=== PATIENT | male | born 2005 | race Caucasian/White ===

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

== ENCOUNTER 2024-07-23 12:25 | Outpatient (CLI) | payer OTHER, SELFPAY ==
[2024-07-23 12:33] LABS: Hemoglobin A1C 5.5 % (<5.7)
[2024-07-23 13:03] LABS: Anion Gap 6.9 mmol/L (3-11); BUN 17 mg/dL (7-18); CO2 34.1 mmol/L (21.0-32.0); CREATININE 1.1 mg/dL (0.70-1.30); Calcium 9.9 mg/dL (8.5-10.1); Chloride 101 mmol/L (98-107); Estimated GFR 97.95 (mL/min/1.73m2); Glucose 90 mg/dL (74-106); Potassium 4.4 mmol/L (3.5-5.1); Sodium 142 mmol/L (136-145); TSH (W/Ref FT4) 1.64 uIU/mL (0.36-3.74)
== END 2024-07-23 12:26 | disposition home or self-care (01) ==
LOC: LBO 12:26
PROVIDERS: PCP Pediatrics; Visit Provider Pediatrics
DX: Z83.3 Family history of diabetes mellitus (principal)
CPT/HCPCS: 36415; 80048; 83036; 84443

== ENCOUNTER 2025-01-01 11:55 | Emergency (ER) | payer OTHER, SELFPAY ==
[2025-01-01 12:08] VITALS: BP 121/69; PULSE 63; RESP 14; TEMP 36.6; O2SAT 96
--- NOTE | 2025-01-01 12:45 | W.ED.GENAD ---
Discharge Plan Disposition Patient Disposition: Home Condition: Good Discharge Details Clinical Impression: Concussion, Abrasion head Primary Care Provider: Geovany Cabrera ED Provider: Geovany Oconnell Home Meds and New Rx's Prescriptions: No Action ascorbate calcium (vitamin C) 500 mg tablet 1,000 mg PO DAILY cholecalciferol (vitamin D3) 125 mcg (5,000 unit) capsule 125 mcg PO DAILY Galzin 50 mg (zinc) capsule 50 mg PO DAILY Discharge Instructions Instructions: Concussion, Adult ED Additional Instructions: At this time your symptoms appear clinically inconsistent with a fracture of your skull or an intracranial brain bleed. You did have a mild abrasion on the scalp which has been covered with skin glue. I do suspect that you received a mild concussion from the episode. Please drink plenty of fluids and rest. If you have any worsening of your symptoms please return immediately. Please be very cognizant of any evidence of worsening headache, vomiting, weakness, numbness, dizziness, decreased concentration, memory problems, sleep disturbance, irritability, fatigue, visual disturbances, judgment problems, depression, or anxiety. These may represent a worsening of your condition or a different, or worse pathology. Please either return immediately for reevaluation or follow up with your primary care provider immediately for continued assessment, reassessment, and management. Please avoid any contact sports, or activities which could cause jarring of your head. A second repeat injury can cause significant and permanent brain damage. After you have complete resolution of any of the symptoms noted above please wait one COMPLETE week until you resume normal gentle physical activity. If you have any return of the symptoms after this, please again wait 1 week after you have complete resolution of your symptoms to return to gentle and normal activities. Referrals: Geovany Cabrera MD [Primary Care Provider, Pediatrics Medical] HPI General Date/Time Provider Initiated Documentation: 01/01/25 12:21. HPI Narrative: This is a 19-year-old male with no significant past medical history whose immunizations are otherwise up-to-date with the last tetanus being in 2016, who presents today for trauma to the scalp. Patient was at work about 45 minutes ago when a steel leveling device swung down and hit his scalp. He had no loss of consciousness, he did develop mild to moderate headache immediately. He denies any vision changes, numbness tingling or weakness. He does state that he feels somewhat off and slightly lightheaded. He denies any seizures. He denies any micturition or defecation accidentally. He has not taken any NSAID therapy at this point. Aside for pain in the scalp where the contusion occurred he did have some mild bleeding as well. No other complaints at this time. No neck or chest pain. Related Data Home Medications ?Medication ?Instructions ?Recorded ?Confirmed ascorbate calcium (vitamin C) 500 1,000 mg PO DAILY 12/23/21 02/14/23 mg tablet cholecalciferol (vitamin D3) 125 125 mcg PO DAILY 12/23/21 02/14/23 mcg (5,000 unit) capsule zinc acetate 50 mg (zinc) capsule 50 mg PO DAILY 12/23/21 02/14/23 (Galzin) Allergies Allergy/AdvReac Type Severity Reaction Status Date / Time No Known Allergies Allergy Verified 02/14/23 15:15 General Stated Complaint: HeadInjury DEMOND: 3 Exam Narrative Exam Narrative: 1.Const: Well-nourished, Well-developed, appearing stated age 2.Eyes: PERRL, no conjunctival injection, and symmetrical lids. 3.ENT: Atraumatic external nose and ears. Moist MM. Neck: Symmetric, trachea midline, No thyromegaly. There is no evidence of raccoon eyes, farrar sign, CSF rhinorrhea, mastoid tenderness, cranial crepitus, hemotympanum, exophthalmos, or hyphema. Patient demonstrates intact dentition with no signs of tooth avulsion or fracture, no signs of jaw deformity, no evidence of a LeFort's fracture, with an intact palate, nose and orbital region. There is no evidence of a nasal septal hematoma. No proptosis. Jaw closes symmetrically. Airway is clear. Small abrasion to the left superior scalp, roughly 3 mm x 5 mm. No active bleeding. No evidence of bony involvement. No depressed skull fracture. Mild tenderness over the area of the abrasion but no other tenderness throughout otherwise. 4.CVS: +S1/S2, Peripheral pulses 2+ and equal in all extremities. Brisk capillary refill in all extremities. 5.RESP: Unlabored respiratory effort. Clear to auscultation bilaterally. No wheezes rales or rhonchi 6.GI: Soft, Nontender/Nondistended, No hepatosplenomegaly. No guarding or rebound. 7.MSK: Normocephalic/Atraumatic, Extremities w/o deformity or ttp No cyanosis or clubbing, Normal movement of all extremities 8.Skin: Warm, Dry. Please see ENT 9.Neuro: computer operator II-XII grossly intact. Sensation grossly intact, no focal neurologic deficits. All 6 cardinal planes of vision are fully intact. No evidence of rotatory or vertical nystagmus. The patient demonstrated a normal [id number], good dexterity. There was no evidence of dysdiadochokinesia. Patient was able to ambulate without difficulty. There was no wide-based gait. Romberg testing was normal. [id number] testing was normal. Sensation was intact bilaterally as well as muscle strength bilaterally for all extremities. Patient was able to verbalize butter cup with no slurring, or miss pronunciation. 10.Psych: (AAO) x3. Appropriate mood and affect Course Vital Signs Vital signs: Vital Signs Temperature 36.6 C 01/01/25 12:08 Pulse 63 01/01/25 12:08 Respiratory Rate 14 01/01/25 12:08 Blood Pressure 121/69 01/01/25 12:08 Pulse Oximetry 96 01/01/25 12:08 Temperature 36.6 C 01/01/25 12:08 Temperature Source Oral 01/01/25 12:08 Pulse 63 01/01/25 12:08 Respiratory Rate 14 01/01/25 12:08 Blood Pressure 121/69 01/01/25 12:08 Blood Pressure Position Sitting 01/01/25 12:08 Pulse Oximetry 96 01/01/25 12:08 Oxygen Delivery Method Room Air 01/01/25 12:08 Oxygen Flow Rate 0 01/01/25 12:08 Pain Level 5 01/01/25 12:08 Medical Decision Making This is a 19-year-old male with no significant past medical history whose immunizations are otherwise up-to-date with the last tetanus being in 2016, who presents today for trauma to the scalp. Patient was at work about 45 minutes ago when a steel leveling device swung down and hit his scalp. He had no loss of consciousness, he did develop mild to moderate headache immediately. He denies any vision changes, numbness tingling or weakness. He does state that he feels somewhat off and slightly lightheaded. He denies any seizures. He denies any micturition or defecation accidentally. He has not taken any NSAID therapy at this point. Aside for pain in the scalp where the contusion occurred he did have some mild bleeding as well. No other complaints at this time. No neck or chest pain. Physical exam demonstrates Small abrasion to the left superior scalp, roughly 3 mm x 5 mm. No active bleeding. No evidence of bony involvement. No depressed skull fracture. Mild tenderness over the area of the abrasion but no other tenderness throughout otherwise. Patient's neurologic assessment is normal. No other atypical findings or concerning findings or other signs of significant trauma. Patient otherwise looks clinically well. No evidence to suggest skull fracture, no clinical or historical evidence to suggest acute intracranial bleed at this time based on current clinical assessment. Diagnosis is scalp abrasion. Small area dollop of Dermabond was applied to this area. No bleeding. The area was cleaned and washed thoroughly before him. Tetanus was last updated in , we will update again today. Suspect mild concussion as well. Recommend concussion discharge instructions for the patient. Discussed the importance of rest and hydration. Patient otherwise stable for discharge. No indication for emergent CT imaging at this time. No indication for other diagnostic modalities based on current clinical assessment. Discussed red flags for which to return. I have extensively reviewed the treatment plan and discharge instructions with the patient and their family. I have addressed all patient concerns at this time. The patient and family was made aware of what symptoms to monitor for that would warrant a return to the emergency department. Discussed the plan with the patient and family, they demonstrate verbal understanding and agreement with our assessment and plan at this time. The documentation in this chart was dictated using [employer] dictation software. Please excuse any dictation errors. 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 Father No problems noted. Sister No problems noted. grandparent Diabetes maternal and paternal GM Heart disease maternal GM COPD (chronic obstructive pulmonary disease) Social History Smoking/Tobacco Use Status: Never Second Hand Exposure: No Smoking risk assessment performed?: Yes Alcohol Intake: never Drug use: Never Adopted: No Caregiver/Support person: No Foster care: No Household members: family Housing: house Number of Children: 0 number of grandchildren: 0 Communication Needs: Corrective Lenses Education Level: college Details: [employer] in [employer], Fall 2022 ([employer]) Pets and animals: Yes (1 dog) Pets and animals: dog(s) Current gender identity: male What type of physical activity do you participate in: other Details: Soccer, weight-lift
[2025-01-01] MEDS: Diph,Pertuss(Acell),Tet Vac/Pf 0.5 ML SYR IM (13:02)
== END 2025-01-01 13:03 | disposition home or self-care (01) ==
LOC: ER 13:46
PROVIDERS: Emergency Provider Student in an Organized Health Care Education/Training Program; PCP Pediatrics
DX: S06.0X0A Concussion without loss of consciousness, initial encounter (principal); S00.01XA Abrasion of scalp, initial encounter; W22.09XA Striking against other stationary object, initial encounter; Y93.89 Activity, other specified; Y92.69 Other specified industrial and construction area as the place of occurrence of the external cause; Y99.0 Civilian activity done for income or pay; Z23 Encounter for immunization
CPT/HCPCS: 90471; 90715; 99283